=== PATIENT | female | born 1950 | race Caucasian/White ===

== ENCOUNTER 2016-12-20 20:28 | Emergency (ER) | payer MEDICARE ==
[~2016-12-20] VITALS: Ht 149.9 cm; Wt 68.0 kg
--- NOTE | ~2016-12-20 | CR181 ---
[facility] A Service of [facility] & [facility] RADIOLOGY TEXT RESULTS PATIENT: MADELEINE GARAY LOCATION: SED : 50 UNIT #: [id number] AGE: [address]: Jing Amaral SEX: F ORDER DR: [id number] [address] [address] [id number] E MR#: [id number] Acc #: [id number] NAME: MADELEINE GARAY : 1950 SEX: F STUDY DATE/TIME: 12/20/2016 21:01 UNIT: SED ROOM: STUDY DESCRIPTION: CR Lumbar Spine 2 or 3 Views Attending Physician: Jing Amaral Pa-C Ordering Physician: Jing Amaral Pa-C Primary Care Physician: No Primary Care Physician MEDICAL IMAGING REPORT This report is preliminary unless electronic signature is present. EXAM Lumbar spine, 3 views. HISTORY Fell in parking lot, complains of back and left hip pain. FINDINGS AP, lateral, and cone lateral views of the lumbar spine demonstrates no fracture or malalignment. No spondylolysis or spondylolisthesis. Disc spaces appear maintained. Minimal lower lumbar spine facet arthropathy. Aortic calcifications noted. No sizeable aneurysm. Sacral neural stimulator noted overlying the right gluteal region with leads in expected position. Mild levocurvature lumbar spine. IMPRESSION No acute lumbar spine abnormality. Minimal lower lumbar spine facet arthropathy. Dictated by... Jorje Orlando M.D. THIS IS AN ELECTRONICALLY VERIFIED REPORT Jorje Orlando M.D. at 12/21/2016 2:06 PM Madyson TD: 12/20/2016 23:33 JOB #: [id number] MEDICAL IMAGING REPORT Page 1 of 1
--- NOTE | ~2016-12-20 | CR93 ---
[facility]. [facility] A Service of [facility] & [facility] RADIOLOGY TEXT RESULTS PATIENT: MADELEINE GARAY LOCATION: SED : 50 UNIT #: [id number] AGE: [address]: Jing Amaral SEX: F ORDER DR: [id number] [address] [address] [id number] E MR#: [id number] Acc #: [id number] NAME: MADELEINE GARAY : 1950 SEX: F STUDY DATE/TIME: 12/20/2016 21:01 UNIT: SED ROOM: STUDY DESCRIPTION: CR Elbow Min 3 Views Lt Attending Physician: Jing Amaral Pa-C Ordering Physician: Jing Amaral Pa-C Primary Care Physician: No Primary Care Physician MEDICAL IMAGING REPORT This report is preliminary unless electronic signature is present. EXAMINATION Three views of left elbow. DATE 12/20/2016 HISTORY 66-year-old female who fell tonight with left elbow pain. COMPARISON None. FINDINGS No acute elbow fracture or joint dislocation or significant osteoarthritic change. No retained radiopaque foreign body is seen in the soft tissues. IMPRESSION 1. Normal left elbow. Dictated by... Berna Johnson M.D. THIS IS AN ELECTRONICALLY VERIFIED REPORT Berna Johnson M.D. at 12/21/2016 12:28 PM AYO/porter TD: 12/20/2016 23:28 JOB #: [id number] MEDICAL IMAGING REPORT Page 1 of 1
--- NOTE | ~2016-12-20 | CT71 ---
[facility] A Service [facility] RADIOLOGY TEXT RESULTS PATIENT: MADELEINE GARAY LOCATION: SED : 50 UNIT #: [id number] AGE: [address]: Jing Amaral SEX: F ORDER DR: [id number] [address] [address] [id number] E MR#: [id number] Acc #: [id number] NAME: MADELEINE GARAY : 1950 SEX: F STUDY DATE/TIME: 12/20/2016 21:18 UNIT: SED ROOM: STUDY DESCRIPTION: CT Head Wo Contrast Attending Physician: Jing Amaral Pa-C Ordering Physician: Jing Amaral Pa-C Primary Care Physician: No Primary Care Physician MEDICAL IMAGING REPORT This report is preliminary unless electronic signature is present. EXAM Noncontrast head CT. HISTORY Fell in parking lot, hit head. Posterior head pain, dizziness. TECHNIQUE This CT exam was performed with one or more of the following radiation dose reduction techniques: automatic exposure control, adjustment of mA and/or kV according to patient size, and iterative reconstruction. FINDINGS Axial noncontrast imaging of the brain demonstrates mild generalized atrophy. No mass, mass effect, or midline shift. No hemorrhage or extraaxial fluid collections. Bony calvaria, skull base, mastoids, sinuses unremarkable. IMPRESSION No acute intracranial abnormality identified. Mild atrophy. Dictated by... Jorje Orlando M.D. THIS IS AN ELECTRONICALLY VERIFIED REPORT Jorje Orlando M.D. at 12/21/2016 2:06 PM YOUSIF/maryuri TD: 12/20/2016 23:29 JOB #: [id number] [facility] A [facility] RADIOLOGY TEXT RESULTS PATIENT: MADELEINE GARAY LOCATION: SED : 50 UNIT #: [id number] AGE: [address]: Jing Amaral PAC SEX: F ORDER DR: MEDICAL IMAGING REPORT Page 1 of 1
--- NOTE | ~2016-12-20 | CR150 ---
[facility] A Service of [facility] RADIOLOGY TEXT RESULTS PATIENT: MADELEINE GARAY LOCATION: SED : 50 UNIT #: [id number] AGE: [address]: Jing Amaral PAC SEX: F ORDER DR: [id number] [address] [address] [id number] E MR#: [id number] Acc #: [id number] NAME: MADELEINE GARAY : 1950 SEX: F STUDY DATE/TIME: 12/20/2016 21:01 UNIT: SED ROOM: STUDY DESCRIPTION: CR Hip Min 2 Views Lt Attending Physician: Jing Amaral Pa-C Ordering Physician: Jing Amaral Pa-C Primary Care Physician: Primary Care Physician No MEDICAL IMAGING REPORT This report is preliminary unless electronic signature is present. EXAM AP pelvis with frog view left hip. DATE: 12/20/2016 HISTORY 66-year-old female who fell tonight with left hip pain and back pain. COMPARISON None. FINDINGS No pelvic fracture, hip fracture or hip dislocation is seen. The hip joint spaces are well preserved. Imaged lower lumbar spine is unremarkable. Presumed sacral stimulator device is seen on the right. Calcified pelvic phleboliths are present bilaterally. IMPRESSION Normal pelvis and left hip. Dictated by... Berna Johnson M.D. THIS IS AN ELECTRONICALLY VERIFIED REPORT Berna Johnson M.D. at 12/21/2016 12:28 PM AYO/katty TD: 12/20/2016 23:31 JOB #: [id number] [facility] A Service [facility] RADIOLOGY TEXT RESULTS PATIENT: MADELEINE GARAY LOCATION: SED : 50 UNIT #: [id number] AGE: [address]: Jing Amaral PAC SEX: F ORDER DR: MEDICAL IMAGING REPORT Page 1 of 1
[~2016-12-20 20:28] MED LIST: ACIPHEX20 MG PO; CITALOPRAM HBR40 M1 PO; NEURONTIN600 MG PO; ROSUVASTATIN CA20 MG PO; TOPAMAX25 M1 PO
[2016-12-20] MEDS ORDERED: NEXIUM PO (20:45)
[2016-12-20] MEDS ORDERED: NOVOLOG100 U/ML SUBQ (20:45)
== END 2016-12-20 21:45 | disposition home or self-care (01) ==
LOC: SED 20:28
DX: S70.02XA Contusion of left hip, initial encounter (principal); S30.0XXA Contusion of lower back and pelvis, initial encounter; S00.93XA Contusion of unspecified part of head, initial encounter; S50.312A Abrasion of left elbow, initial encounter; E11.9 Type 2 diabetes mellitus without complications; K21.9 Gastro-esophageal reflux disease without esophagitis; Z79.4 Long term (current) use of insulin; Z88.6 Allergy status to analgesic agent; Z79.899 Other long term (current) drug therapy; W01.0XXA Fall on same level from slipping, tripping and stumbling without subsequent striking against object, initial encounter; Y92.009 Unspecified place in unspecified non-institutional (private) residence as the place of occurrence of the external cause
CPT/HCPCS: 70450; 72100; 73080; 73502; 99284